=== PATIENT | female | born 1950 | race Caucasian/White ===

== ENCOUNTER 2016-12-15 22:09 | Inpatient (IN) | payer OTHER, MEDICAID ==
[~2016-12-15] VITALS: Ht 147.3 cm; Wt 83.9 kg
[2016-12-15] MEDS: NACL 0.9% 1,000 ML IV SCH (02:50)
[~2016-12-15 22:09] MED LIST: ALBU0.0912 IH; AZIT1PDR6 PO; BUDE1AER IH; FERR325E14 PO; FLUO-387 PO; LISI30TA6 PO; METF1000 PO; METH4TAB3 PO; MONT10TA35 PO; OMEP40EC1 PO; ORE25 PO; PRON INH; SIMV20TA1 PO
[2016-12-15 22:29] VITALS: BP 143/68
--- NOTE | 2016-12-15 22:47 | NUR ---
Pt ambulated to bed 2.
[2016-12-15] MEDS ORDERED: NACL 0.9% 2,000 ML IV ONE (22:55)
--- NOTE | 2016-12-15 23:07 | NUR ---
Dr. Silva evaluating patient at bedside.
[2016-12-15 23:10] LABS: BASOPHILS # (AUTO) 0.1 K/uL (0.00-0.22); BASOPHILS % (AUTO) 0.6 % (0.0-2.0); EOSINOPHILS # (AUTO) 0.1 K/uL (0-0.4); EOSINOPHILS % (AUTO) 0.8 % (0.0-4.0); HEMATOCRIT 32.2 % (36-48); HEMOGLOBIN 10.3 g/dL (12.0-16.0); LYMPHOCYTES # (AUTO) 1.7 K/uL (2.5-16.5); LYMPHOCYTES % (AUTO) 17.3 % (20.5-51.1); MEAN CORPUSCULAR HEMOGLOBIN 24 pg (27-31); MEAN CORPUSCULAR HGB CONC 32 g/dL (33-37); MEAN CORPUSCULAR VOLUME 74 fL (80-94); MONOCYTES # (AUTO) 0.7 K/uL (0.8-1.0); MONOCYTES % (AUTO) 7.6 % (1.7-9.3); NEUTROPHILS % (AUTO) 73.7 % (42.2-75.2); PLATELET COUNT (AUTO) 321 K/uL (140-450); RED BLOOD CELL COUNT(AUTO) 4.36 MIL/uL (4.20-5.40); RED CELL DISTRIBUTION WIDTH 16.4 % (11.6-13.7); WHITE BLOOD COUNT (AUTO) 9.6 K/uL (4.8-10.8)
[2016-12-15 23:26] LABS: ALBUMIN 2.9 g/dL (3.4-5.0); ANION GAP 12.4 (8-16); CREATININE 1.7 mg/dL (0.6-1.3); POTASSIUM 5.4 mmol/L (3.5-5.1); TOTAL BILIRUBIN 0.1 mg/dL (0.0-1.0)
--- NOTE | 2016-12-15 23:40 | NUR ---
66/F PRESENTS TO ER C/O HIGH BLOOD SUGAR AND DIZZINESS. PT IS AA&OX4. ACTING APPROPRIATE FOR AGE. PT DENIES PAIN, SOB, CP, FEVER, N/V/D. BL LUNG SOUNDS CLEAR, ABDOMEN IS ROUND SOFT AND NON TENDER. DAUGHTER AT BEDSIDE TALKING WITH PT, ER MD NOTIFIED OF PT STATUS, COMFORT NEEDS MET AT THIS TIME.
[2016-12-15] MEDS ORDERED: ACETAMINOPHEN 325 MG TAB PO PRN (23:55)
[2016-12-15] MEDS ORDERED: ONDANSETRON 4 MG/2 ML VIAL IVP PRN (23:55)
[2016-12-15] MEDS ORDERED: HYDROcodone/APAP 7.5/325 MG 1 TAB PO PRN (23:55)
[2016-12-16] MEDS ORDERED: SODIUM POLYSTYRENE 15 GM/60 ML UDBTL PO ONE
--- NOTE | 2016-12-16 00:21 | NUR ---
Dr. Jimenez evaluating patient at bedside.
[2016-12-16] MEDS ORDERED: LOSA100T25 PO (00:39)
[2016-12-16] MEDS ORDERED: GABA300C PO (00:39)
[2016-12-16] MEDS ORDERED: PRAV20TA2 PO (00:39)
[2016-12-16] MEDS ORDERED: FURO-572 PO (00:39)
[2016-12-16] MEDS ORDERED: METO25TA PO (00:39)
[2016-12-16] MEDS ORDERED: LANTUS SUBQ ×2 (00:46)
[2016-12-16 01:12] LABS: CHOL/HDL RATIO 4.8 (1-4.5); FREE T4 (FREE THYROXINE) 1.18 ng/dL (0.76-1.46); MAGNESIUM 2.2 mg/dL (1.8-2.4); PHOSPHORUS 4.3 mg/dL (2.5-4.9); THYROID STIMULATING HORMONE 1.06 uIU/mL (0.34-3.74)
--- NOTE | 2016-12-16 01:15 | NUR ---
Patient will be admitted to care of [facility]. Admited to TELE. Will go to room 106-B. Belongings list completed. Report to MARINA SANCHEZ .
[2016-12-16 01:21] VITALS: BP 130/64
--- NOTE | 2016-12-16 01:21 | NUR ---
PATIENT ADMITTED TO THE UNIT FROM THE ER. PATIENT ACCOMPANIED BY DAUGHTER. PATIENT IS AMBULATORY AND AOX4. NO SIGNS AND SYMPTOMS OF DISTRESS NOTED. NO COMPLAINTS AT THIS TIME. PATIENT IS LATVIAN SPEAKING. DAUGHTER WAS ABLE TO TRANSLATE TO PATIENT, AND GAVE ACCURATE MEDICAL HISTORY. PATIENT IS ON ROOM AIR. IV SITE NOTED ON LEFT AC, SITE IS ASYMPTOMATIC, INTACT AND PATENT. IVF INFUSING WELL. BED IN LOWEST POSITION, SIDE RAILS UP AND CALL LIGHT WITHIN REACH. WILL CONTINUE TO MONITOR.
[2016-12-16 01:27] LABS: APPEARANCE,URINE CLEAR (CLEAR); BILIRUBIN,URINE NEGATIVE (NEGATIVE); BLOOD, URINE NEGATIVE (NEGATIVE); COLOR,URINE YELLOW (YELLOW); LEUKOCYTE ESTERASE ,URINE NEGATIVE (NEGATIVE); NITRITE, URINE NEGATIVE (NEGATIVE); PH,URINE 5.5 (5.0-9.0); UGLUCOSE 3+ (NEGATIVE)
[2016-12-16] MEDS: INSULIN DETEMIR 100 UNITS/ML 10 ML VIAL SUBQ SCH ×2 (01:34→20:51)
[2016-12-16 01:46] LABS: RBC,URINE 0-5 (RARE) /HPF (0-5); WBC,URINE 0-5 (RARE) /HPF (0-5); YEAST,URINE Rare /HPF (None Seen)
[2016-12-16] MEDS ORDERED: ALBUTEROL SULFATE/IPRATROPIU 3 ML SOL IH PRN (01:55)
[2016-12-16] MEDS ORDERED: DEXTROSE 50% 50 ML SYR IVP PRN (02:15)
--- NOTE | 2016-12-16 02:30 | NUR ---
PATIENT NEEDED TO GO TO THE RESTROOM, STANDBY ASSISTANCE DONE. PATIENT'S GAIT IS STABLE. NO SOB OR SIGNS OF DISTRESS NOTED. PATIENT VOIDED.
[2016-12-16 04:00] VITALS: BP 135/76
[2016-12-16] MEDS: INSULIN LISPRO SLIDING SCALE 100 UNITS/ML VIAL SUBQ PRN ×4 (06:22→20:50)
[2016-12-16] MEDS: BLOOD GLUCOSE MONITORING 1 DEV DEV FS SCH ×4 (07:03→20:47)
[2016-12-16] MEDS: ALBUTEROL SULFATE/IPRATROPIU 3 ML SOL IH SCH ×3 (07:06→19:26)
--- NOTE | 2016-12-16 07:09 | NUR ---
PATIENT REPORT GIVEN TO MORNING NURSE. PATIENT IS IN STABLE CONDITION
[2016-12-16 07:17] LABS: ANION GAP 11.2 (8-16); CARBON DIOXIDE 26.8 mmol/L (21-32); CREATININE 1.1 mg/dL (0.6-1.3)
--- NOTE | 2016-12-16 07:29 | NUR ---
RECEIVED PT IN BED. ASLEEP. AROUSABLE TO VOICE. ALERT ORIENTEDX4. NO SOB NOTED. RESPIRAOTY THERAPIST AT BEDSIDE, PT RECEIVING BREATHING TREATMENT. DENIES ANY PAIN OR DISCOMFORT AT THIS TIME. PT AMBULATORY TO THE BATHROOM. SAFETY PRECAUTION IN PLACE. CALL LIGHT WITHIN REACH.
[2016-12-16 07:59] VITALS: BP 144/61
[2016-12-16] MEDS: DOCUSATE SODIUM 100 MG GELCAP PO SCH ×2 (08:57→20:54)
[2016-12-16] MEDS: FLUoxetine 20 MG CAP PO SCH (08:57)
[2016-12-16] MEDS: metFORMIN 500 MG TAB PO SCH ×2 (08:57→20:52)
[2016-12-16] MEDS: GABAPENTIN 300 MG CAP PO SCH (08:57)
[2016-12-16] MEDS: LISINOPRIL 10 MG TAB PO SCH (08:57)
[2016-12-16] MEDS: NICOTINE TRANSD SYS 7 MG/24 HR PATCH TD SCH (08:58)
[2016-12-16] MEDS: FUROSEMIDE 20 MG TAB PO SCH (08:58)
[2016-12-16] MEDS: METOPROLOL SUCCINATE 50 MG TABER PO SCH (08:58)
[2016-12-16] MEDS ORDERED: HYDROCHLOROTHIAZIDE 25 MG TAB PO SCH (09:00)
--- NOTE | 2016-12-16 09:43 | NUR ---
PATIENT HAS BEEN SCREENED AND CATEGORIZED MODERATE RISK. PATIENT WILL BE SEEN WITHIN 3-5 DAYS OF ADMISSION. 12/17/16 TO 12/20/[address]
--- NOTE | 2016-12-16 11:29 | NUR ---
PT HAVING PROCEDURE DONE AT THIS TIME WILL ADMINISTER BREATHING TX AT A LATER TIME.
[2016-12-16] MEDS: FERRIC GLUCONATE 125 MG in NACL 0.9% 100 ML IV SCH (11:41)
[2016-12-16 11:50] VITALS: BP 125/54
[2016-12-16] MEDS: NACL 0.9% 1,000 ML IV SCH ×2 (13:14→22:02)
--- NOTE | 2016-12-16 14:59 | NUR ---
DAUGHTER OF PT AT BEDSIDE. PT REQUESTED TO TAKE A SHOWER. PROVIDED WITH SHOWER NEEDS. PT ABLE TO WALK STEADILY TO THE SHOWER ROOM. WITH STAND BY ASSIST. NO SOB NOTED. DENIES ANY PAIN OR DISCOMFORT AT THIS TIME.
[2016-12-16 15:59] VITALS: BP 110/50
--- NOTE | 2016-12-16 16:45 | NUR ---
PT COMPLAINS OF HAVING SOME DIFFICULTY OF BREATHING AND REQUESTS TO HAVE BREATHING TREATMENT. NO DISTRESS NOTED. O2 SATING AT 97% ON ROOM AIR. SOME VISITORS AT BEDSIDE. PT TALKING TO VISITORS. NO SIGNS AND SYMPTOMS OF ACUTE PAIN OR DISCOMFORT NOTED. CALLED RESPIRATORY THERAPIST TO FURTHER ASSESS PT.
--- NOTE | 2016-12-16 18:40 | NUR ---
PT KEPT CLEAN, DRY AND COMFORTABLE, NEEDS ATTENDED. WILL ENDORSE TO NEXT SHIFT, PT ON STABLE CONDITION, FOR CONTINUITY OF CARE. NO SOB NOTED, DENIES ANY PAIN OR DISCOMFORT AT THIS TIME.
--- NOTE | 2016-12-16 19:23 | NUR ---
RECEIVED REPORT FROM DAY SHIFT NURSE. AAOX4. PT LYING COMFORTABLY IN BED. NO DISTRESS NOTED. IV TO LEFT AC #20G, NS AT 80ML/HR. CALL LIGHT WITHIN REACH. WILL CONTINUE TO MONITOR.
[2016-12-16 20:00] VITALS: BP 122/50
[2016-12-16] MEDS ORDERED: MONTELUKAST SODIUM 10 MG TAB PO SCH (21:00)
[2016-12-16] MEDS ORDERED: SIMVASTATIN 20 MG TAB PO SCH (21:00)
--- NOTE | 2016-12-16 22:25 | NUR ---
PT C/O PAIN ON THE IV SITE. D/C IV CANNULA. TIP INTACT.
--- NOTE | 2016-12-16 22:35 | NUR ---
INSERTED IV LINE TO RIGHT HAND #22G. GOOD FLUSH AND BLOOD RETURN. PT TOLERATED PROCEDURE WELL.
[2016-12-17] VITALS: BP 127/52
--- NOTE | 2016-12-17 00:20 | NUR ---
PT SLEEPING. NO SIGNS OF DISTRESS. CALL LIGHT WITHIN REACH.
--- NOTE | 2016-12-17 02:43 | NUR ---
PT SLEEPING. NO SIGNS OF PAIN OR DISCOMFORT NOTED. IVF INFUSING WELL. CALL LIGHT WITHIN REACH.
[2016-12-17 04:00] VITALS: BP 115/52
--- NOTE | 2016-12-17 04:50 | NUR ---
PT SLEEPING. NO SIGNS OF DISTRESS.
[2016-12-17] MEDS: BLOOD GLUCOSE MONITORING 1 DEV DEV FS SCH ×3 (06:47→16:26)
[2016-12-17] MEDS: ALBUTEROL SULFATE/IPRATROPIU 3 ML SOL IH SCH (06:53)
[2016-12-17 07:00] LABS: BASOPHILS % (AUTO) 0.3 % (0.0-2.0); EOSINOPHILS # (AUTO) 0.1 K/uL (0-0.4); EOSINOPHILS % (AUTO) 1.2 % (0.0-4.0); HEMATOCRIT 27.3 % (36-48); HEMOGLOBIN 8.8 g/dL (12.0-16.0); LYMPHOCYTES # (AUTO) 1.5 K/uL (2.5-16.5); LYMPHOCYTES % (AUTO) 19.1 % (20.5-51.1); MEAN CORPUSCULAR HEMOGLOBIN 24 pg (27-31); MEAN CORPUSCULAR HGB CONC 32 g/dL (33-37); MEAN CORPUSCULAR VOLUME 74 fL (80-94); MONOCYTES # (AUTO) 0.8 K/uL (0.8-1.0); MONOCYTES % (AUTO) 9.9 % (1.7-9.3); NEUTROPHILS # (AUTO) 5.4 K/uL (1.8-7.7); NEUTROPHILS % (AUTO) 69.5 % (42.2-75.2); PLATELET COUNT (AUTO) 257 K/uL (140-450); RED BLOOD CELL COUNT(AUTO) 3.69 MIL/uL (4.20-5.40); RED CELL DISTRIBUTION WIDTH 16.3 % (11.6-13.7); WHITE BLOOD COUNT (AUTO) 7.9 K/uL (4.8-10.8)
--- NOTE | 2016-12-17 07:18 | NUR ---
ENDORSED TO DAY SHIFT NURSE. PT IN STABLE CONDITION.
--- NOTE | 2016-12-17 07:20 | NUR ---
RECEIVED PT SITTING ON BED. AWAKE, ALERT ORIENTEDX4. NO SOB NOTED. DENIES ANY PAIN OR DISCOMFORT AT THIS TIME. PT AMBULATORY. SAFETY PRECAUTION IN PLACE. CALL LIGHT WITHIN REACH.
[2016-12-17 07:52] VITALS: BP 152/66
[2016-12-17 07:54] LABS: ANION GAP 11.1 (8-16); CARBON DIOXIDE 24.1 mmol/L (21-32); POTASSIUM 4.2 mmol/L (3.5-5.1)
[2016-12-17 08:17] LABS: MAGNESIUM 1.8 mg/dL (1.8-2.4); PHOSPHORUS 3.9 mg/dL (2.5-4.9)
[2016-12-17] MEDS: FUROSEMIDE 20 MG TAB PO SCH (08:56)
[2016-12-17] MEDS: metFORMIN 500 MG TAB PO SCH (08:56)
[2016-12-17] MEDS: METOPROLOL SUCCINATE 50 MG TABER PO SCH (08:56)
[2016-12-17] MEDS: FLUoxetine 20 MG CAP PO SCH (08:57)
[2016-12-17] MEDS: LISINOPRIL 10 MG TAB PO SCH (08:57)
[2016-12-17] MEDS: GABAPENTIN 300 MG CAP PO SCH (08:57)
[2016-12-17] MEDS: DOCUSATE SODIUM 100 MG GELCAP PO SCH (08:57)
[2016-12-17] MEDS: NICOTINE TRANSD SYS 7 MG/24 HR PATCH TD SCH (08:58)
[2016-12-17 09:53] LABS: TRANSFERRIN 277 mg/dL (200-370)
[2016-12-17] MEDS: NACL 0.9% 1,000 ML IV SCH (09:59)
--- NOTE | 2016-12-17 11:00 | NUR ---
PT IN BED. WITH FAMILY VISITOR AT BEDSIDE. NO SOB NOTED. DENIES ANY PAIN OR DISCOMFORT AT THIS TIME.
[2016-12-17] MEDS: FERRIC GLUCONATE 125 MG in NACL 0.9% 100 ML IV SCH (11:36)
[2016-12-17] MEDS: INSULIN LISPRO SLIDING SCALE 100 UNITS/ML VIAL SUBQ PRN (11:41)
[2016-12-17 11:48] VITALS: BP 135/53
[2016-12-17] MEDS ORDERED: INFLUENZA VIRUS VACCINE QUAD 0.5 ML SYR IMVAC SCH (14:50)
[2016-12-17] MEDS ORDERED: NICO1PAT64 TD (15:31)
[2016-12-17] MEDS ORDERED: ASCO500T93 PO (15:31)
[2016-12-17] MEDS ORDERED: GLU500 PO (15:31)
[2016-12-17] MEDS ORDERED: FURO20TA8 PO (15:31)
[2016-12-17] MEDS ORDERED: GABA-638 PO (15:31)
[2016-12-17] MEDS ORDERED: FERR-193 PO (15:31)
[2016-12-17 15:51] VITALS: BP 142/61
[2016-12-17] MEDS ORDERED: BLOO-571 MC (16:05)
[2016-12-17] MEDS ORDERED: GLUCOMETER (16:08)
[2016-12-17] MEDS ORDERED: LANCETS (16:09)
[2016-12-17] MEDS ORDERED: FLUO10CA21 PO (16:10)
--- NOTE | 2016-12-17 16:51 | NUR ---
X-RAY TECH RO CAME TO CHARGE ACCOUNT CLERK PT FOR XRAY OF CERVICAL SPINE. PT AWARE. Addendum: 12/17/16 at 1652 by Laura Hernández RN PLEASE DISREGARD ABOVE DOCUMENTATION, WRONG PATIENT.
--- NOTE | 2016-12-17 17:20 | NUR ---
OFFERED PT TO USE General Specific [employer]. PT PREFERRED DAUGHTER PADMINI TO DO TRANSLATION. DISCHARGE TEACHINGS AND HEALTH INSTRUCTIONS GIVEN AND EXPLAINED TO PT. PT AND DAUGHTER VERBALIZED UNDERSTANDING. PT SIGNED DISCHARGED PAPERS. REMINDED TO FOLLOW UP WITH PCP TOMORROW 12/18/16. FLU VACCINE GIVEN IM ON RIGHT DELTOID. PRESCRIPTIONS GIVEN. TELE MONITOR REMOVED. IV CANNULA REMOVED AND INTACT. NAME ARMBAND REMOVED. NO SOB NOTED, DENIES ANY PAIN OR DISCOMFORT AT THIS TIME. PT WHEELED OUT GOING TO THE HOSPITAL PARKING LOT TO THEIR PRIVATE OWNED VEHICLE. PT DISCHARGED ON STABLE CONDITION.
--- NOTE | 2016-12-18 15:08 | NUR ---
CM NOTE RETRO REVIEW FAXED TO [facility] / FAX# [phone], ATTN: ANTHONY #[phone]
[2016-12-19 13:10] LABS: FERRITIN 10 ng/mL (15-150)
== END 2016-12-17 17:30 | disposition home or self-care (01) | DRG 637 ==
LOC: MED 22:09 → MTU 23:52
PROVIDERS: ADMIT Student in an Organized Health Care Education/Training Program; ATTEND Student in an Organized Health Care Education/Training Program
PROC: 3E0234Z Introduction of Serum, Toxoid and Vaccine into Muscle, Percutaneous Approach (ICD-10-PCS; principal; 2016-12-17)
DX: E11.00 Type 2 diabetes mellitus with hyperosmolarity without nonketotic hyperglycemic-hyperosmolar coma (NKHHC) (principal); N17.0 Acute kidney failure with tubular necrosis; D68.59 Other primary thrombophilia; E87.5 Hyperkalemia; G90.9 Disorder of the autonomic nervous system, unspecified; E11.65 Type 2 diabetes mellitus with hyperglycemia; J45.909 Unspecified asthma, uncomplicated; F32.9 Major depressive disorder, single episode, unspecified; I10 Essential (primary) hypertension; E66.9 Obesity, unspecified; Z68.38 Body mass index [BMI] 38.0-38.9, adult; K21.9 Gastro-esophageal reflux disease without esophagitis; E78.2 Mixed hyperlipidemia; F17.210 Nicotine dependence, cigarettes, uncomplicated; D50.9 Iron deficiency anemia, unspecified; Z71.6 Tobacco abuse counseling; Z23 Encounter for immunization
CPT/HCPCS: 36415; 70450; 71010; 80048; 80053; 81001; 82009; 82150; 82728; 82948; 83036; 83540; 83690; 83735; 83880; 84100; 84439; 84443; 84484; 85025; 85045; 85610; 85730; 87081; 87086; 90658; 93005; 93880; 93925; 93970; 94640; 96360; 96361; 99285; J1815; J2916; J7030; J7620; Q0092

== ENCOUNTER 2017-12-09 21:33 | Emergency (ER) | payer MEDICAID, OTHER ==
[~2017-12-09] VITALS: Ht 152.4 cm; Wt 84.4 kg
[~2017-12-09 21:33] MED LIST changes: +ASCO500T93 PO; -AZIT1PDR6 PO; +BLOO-571 MC; -BUDE1AER IH; +FERR-20 PO; -FERR325E14 PO; -FLUO-387 PO; +FLUO10CA21 PO; +FURO20TA8 PO; +GABA-638 PO; +GLU500 PO; +GLUCOMETER; +LANCETS; +LANTUS SUBQ; -LISI30TA6 PO; +LOSA100T15 PO; -METF1000 PO; -METH4TAB3 PO; +METO25TA PO; +NICO1PAT64 TD; -ORE25 PO; +PRAV20TA2 PO; -SIMV20TA1 PO
[2017-12-09 21:37] VITALS: BP 184/75
--- NOTE | 2017-12-09 21:42 | NUR ---
PT TRIAGED VSS, NAD. EDMD AWARE.
--- NOTE | 2017-12-09 22:24 | NUR ---
PT AMBULATED TO BED 10
--- NOTE | 2017-12-09 22:24 | NUR ---
PT PRESENTS TO ED WITH SOB, NAVARRO, ABD PAIN, AND HIGH BLOOD GLUCOSE. PT STATES SOB, LUNGS CLEAR TO AUSCLETATION BILAT AND THROUGHOUT WITH O2SAT OF 99% AT RA; NAVARRO PAIN 5/10; ABD PAIN EPIGASTRIC WITH SHARP PAIN ON POSITION CHANGE AND PALPATION 8/10; BLOOD GLUCOSE 290 UPON ER ADMISSION. VSS. POSITIONED IN BED FOR COMFORT WITH HOB ELEVATED AND SIDE RAIL UP. DAUGHTER AT BEDSIDE. ER MD AWARE. CONTINUE TO MONITOR.
[2017-12-09] MEDS ORDERED: INSULIN REGULAR, HUMAN 100 UNIT/ML VIAL SUBQ ONE (22:25)
[2017-12-09 23:48] LABS: BASOPHILS % (AUTO) 0.5 % (0.0-2.0); EOSINOPHILS # (AUTO) 0.1 K/uL (0-0.4); EOSINOPHILS % (AUTO) 2.2 % (0.0-4.0); HEMATOCRIT 35.2 % (36-48); HEMOGLOBIN 11.5 g/dL (12.0-16.0); LYMPHOCYTES # (AUTO) 2.1 K/uL (2.5-16.5); LYMPHOCYTES % (AUTO) 30.3 % (20.5-51.1); MEAN CORPUSCULAR HEMOGLOBIN 26 pg (27-31); MEAN CORPUSCULAR HGB CONC 33 g/dL (33-37); MEAN CORPUSCULAR VOLUME 80.7 fL (80-94); MONOCYTES # (AUTO) 0.6 K/uL (0.8-1.0); PLATELET COUNT (AUTO) 274 K/uL (140-450); RED BLOOD CELL COUNT(AUTO) 4.36 MIL/uL (4.20-5.40); RED CELL DISTRIBUTION WIDTH 15.3 % (11.6-13.7); WHITE BLOOD COUNT (AUTO) 6.8 K/uL (4.8-10.8)
[2017-12-10 00:09] LABS: ANION GAP 10.7 (8-16); CARBON DIOXIDE 28.1 mmol/L (21-32); CREATININE 1.3 mg/dL (0.6-1.3); POTASSIUM 4.8 mmol/L (3.5-5.1)
[2017-12-10 00:16] LABS: ALBUMIN 2.8 g/dL (3.4-5.0); TOTAL BILIRUBIN 0.2 mg/dL (0.0-1.0)
[2017-12-10 00:26] LABS: APPEARANCE,URINE CLEAR (CLEAR); COLOR,URINE YELLOW (YELLOW)
[2017-12-10 00:27] LABS: BILIRUBIN,URINE NEGATIVE (NEGATIVE); BLOOD, URINE NEGATIVE (NEGATIVE); UGLUCOSE >=1000 (NEGATIVE)
[2017-12-10 00:28] LABS: LEUKOCYTE ESTERASE ,URINE NEGATIVE (NEGATIVE); NITRITE, URINE NEGATIVE (NEGATIVE)
[2017-12-10 00:29] LABS: RBC,URINE 0-5 (RARE) /HPF (0-5); WBC,URINE 0-5 (RARE) /HPF (0-5)
[2017-12-10 00:30] LABS: URINE AMORPHOUS URATE 1+ /HPF (None Seen)
[2017-12-10] MEDS ORDERED: PANTOPRAZOLE 40 MG TABEC PO ONE (00:40)
[2017-12-10] MEDS ORDERED: DICYCLOMINE HCL LIQUID 20 MG, ALUMINUM HYD/MAG/SIMETHICONE 30 ML, LIDOCAINE VISCOUS 2% ... PO ONE ×3 (00:40)
[2017-12-10] MEDS ORDERED: METOCLOPRAMIDE 10 MG TAB PO ONE (00:40)
[2017-12-10 02:34] VITALS: BP 143/86
--- NOTE | 2017-12-10 02:34 | NUR ---
Patient discharged with v/s stable. Written and verbal after care instructions given and explained. Patient alert, oriented and verbalized understanding of instructions. Ambulatory with steady gait. All questions addressed prior to discharge. ID band removed. Patient advised to follow up with PMD. Rx of Reglan given. Patient educated on indication of medication including possible reaction and side effects. Opportunity to ask questions provided and answered.
== END 2017-12-10 02:38 | disposition home or self-care (01) ==
LOC: MED 21:33
DX: E11.65 Type 2 diabetes mellitus with hyperglycemia (principal); J45.909 Unspecified asthma, uncomplicated; K21.9 Gastro-esophageal reflux disease without esophagitis; I10 Essential (primary) hypertension; Z79.4 Long term (current) use of insulin; Z79.899 Other long term (current) drug therapy
CPT/HCPCS: 36415; 80053; 81001; 81002; 83690; 85025; 87086; 96372; 99284; J1815; J8597

== ENCOUNTER 2020-02-14 02:05 | Emergency (ER) | payer OTHER, MEDICAID ==
[~2020-02-14] VITALS: Ht 152.4 cm; Wt 89.8 kg
[~2020-02-14 02:05] MED LIST changes: -LOSA100T15 PO; +LOSA100T51 PO; -OMEP40EC1 PO; +OMEP40EC24 PO
[2020-02-14] MEDS ORDERED: cefTRIAXone 1,000 MG in DEXT 5% MINI-BAG PLUS 50 ML IV ONE (02:15)
[2020-02-14 02:30] VITALS: BP 132/67
--- NOTE | 2020-02-14 02:32 | NUR ---
ERMD EVALUATED PATIENT IN TRIAGE. CT ORDERED.
--- NOTE | 2020-02-14 02:40 | NUR ---
PATIENT TAKEN TO BED 12 VIA W/C.
--- NOTE | 2020-02-14 03:29 | NUR ---
PT TAKEN TO CT AND XRAY VIA WHEELCHAIR
[2020-02-14] MEDS ORDERED: MORPHINE SULFATE 4 MG/ML SYR IM ONE (03:30)
[2020-02-14 03:32] LABS: BASOPHILS % (AUTO) 0.5 % (0.0-2.0); EOSINOPHILS # (AUTO) 0.1 K/uL (0-0.4); EOSINOPHILS % (AUTO) 1.3 % (0.0-4.0); HEMATOCRIT 26.1 % (36-48); HEMOGLOBIN 8.6 g/dL (12.0-16.0); LYMPHOCYTES # (AUTO) 1.1 K/uL (2.5-16.5); LYMPHOCYTES % (AUTO) 12.2 % (20.5-51.1); MEAN CORPUSCULAR HEMOGLOBIN 28 pg (27-31); MEAN CORPUSCULAR HGB CONC 33 g/dL (33-37); MEAN CORPUSCULAR VOLUME 85.7 fL (80-94); MONOCYTES # (AUTO) 0.8 K/uL (0.8-1.0); MONOCYTES % (AUTO) 9.1 % (1.7-9.3); NEUTROPHILS # (AUTO) 6.9 K/uL (1.8-7.7); NEUTROPHILS % (AUTO) 76.9 % (42.2-75.2); PLATELET COUNT (AUTO) 349 K/uL (140-450); RED BLOOD CELL COUNT(AUTO) 3.05 MIL/uL (4.20-5.40); RED CELL DISTRIBUTION WIDTH 16.3 % (11.6-13.7)
--- NOTE | 2020-02-14 03:48 | NUR ---
PT WAS SEEN AT [facility] ON SUNDAY FOR ALOC, WAS TREATED IN ER AND SENT HOME. DAUGHTERS' STATE THAT PT HAS REMAINED ALTERED AND FELL TODAY AT NOON AND STRUCK HER HEAD ON THE GROUND. DENIES LOC. PT CURRENTLY STATES SHE IS HAVING CHEST PAIN WELL. PT UNABLE TO AMBULATE DUE TO NOT HAVING HER WALKER WITH HER. C/O WEAKNESS WELL. NKA HX - DM, HTN, GERD, DEMENTIA
[2020-02-14 04:01] LABS: ALBUMIN 1.1 g/dL (3.4-5.0); ASPARTATE AMINOTRANSFERASE 31 U/L (15-37); CARBON DIOXIDE 25.6 mmol/L (21-32); CHLORIDE 106 mmol/L (98-107); CREATININE 3.5 mg/dL (0.6-1.3); GLUCOSE 117 mg/dL (74-106); POTASSIUM 4.6 mmol/L (3.5-5.1); SODIUM SERUM 138 mmol/L (136-145); TOTAL BILIRUBIN 0.3 mg/dL (0.0-1.0); UREA NITROGEN, BLOOD 39 mg/dL (7-18)
--- NOTE | 2020-02-14 04:10 | NUR ---
XRAY AT BEDSIDE FINISHING UP XRAY'S OF KNEES AND ANKLES.
[2020-02-14] MEDS ORDERED: DONE10TA10 PO (04:45)
--- NOTE | 2020-02-14 05:53 | NUR ---
PT TO BE DISCHARGED HOME. SPOKE TO PT'S DAUGHTER OLGA, SHE WILL CONTACT HER SISTER YAMILET WHO LIVES IN [place] TO COME PICK MOM UP.
--- NOTE | 2020-02-14 06:27 | NUR ---
PT'S DAUGHTER SRAR HERE TO PRE BILLING CLINICIAN PT. Patient discharged with v/s stable. Written and verbal after care instructions given and explained. Patient alert, oriented and verbalized understanding of instructions. Wheel Chair Assisted with to home. All questions addressed prior to discharge. ID band removed. Patient advised to follow up with PMD. Rx of NORCO given. Patient educated on indication of medication including possible reaction and side effects. Opportunity to ask questions provided and answered.
[2020-02-14 06:28] VITALS: BP 115/56
== END 2020-02-14 06:28 | disposition home or self-care (01) ==
LOC: MED 02:05
DX: R51.9 Headache, unspecified (principal); M54.2 Cervicalgia; M25.512 Pain in left shoulder; M25.561 Pain in right knee; M25.571 Pain in right ankle and joints of right foot; N19 Unspecified kidney failure; J45.909 Unspecified asthma, uncomplicated; E11.9 Type 2 diabetes mellitus without complications; K21.9 Gastro-esophageal reflux disease without esophagitis; I10 Essential (primary) hypertension; Z79.4 Long term (current) use of insulin; Z79.899 Other long term (current) drug therapy
CPT/HCPCS: 36415; 70450; 71045; 72125; 73030; 73562; 73610; 80053; 83880; 84484; 85025; 96372; 99285; J2270

== ENCOUNTER 2020-05-14 22:14 | Emergency (ER) | payer OTHER, MEDICAID ==
[~2020-05-14] VITALS: Ht 152.4 cm; Wt 68.0 kg
[~2020-05-14 22:14] MED LIST changes: +DONE10TA10 PO
[2020-05-14 22:20] VITALS: BP 190/79
--- NOTE | 2020-05-14 22:20 | NUR ---
TO BED VIA WHEEL CHAIR
--- NOTE | 2020-05-14 22:45 | NUR ---
BIB FAMILY C/O FALL X 1HR AGO. PT WAS WASHING HER HANDS IN THE [place] ENDED UP FALLING BACK AND HITTING HER HEAD. +HEMATOMA NOTED ON THE RT OCCIPITAL/PARIETAL REGION. VSS. A&OX2. +DIZZINESS. PT HAD 2 EPISODES OF VOMITTING REHABILITATION COUNSELLOR. PT C/O OF NAVARRO, 8/10 PAIN. 2MM PERRLA. FOLLOWS COMMANDS. NEG FAST. EQUAL BILATERAL ARM STRENGTH. NO BLEEDING NOTED. NKDA. PMH: DM, HTN.
[2020-05-14] MEDS ORDERED: ACETAMINOPHEN EXTRA STRENGTH 500 MG TAB PO ONE (23:15)
--- NOTE | 2020-05-14 23:21 | NUR ---
PT TAKEN TO CT VIA RSINDY.
--- NOTE | 2020-05-14 23:40 | NUR ---
PT RETURNED BACK FROM CT VIA [facility].
[2020-05-15] MEDS ORDERED: HYDROcodone/APAP 5/325 MG 1 TAB TAB PO SCH (00:45)
[2020-05-15] MEDS ORDERED: HYDROcodone/APAP 5/325 MG 1 TAB TAB PO ONE (00:55)
--- NOTE | 2020-05-15 01:00 | NUR ---
PT AMBULATED WITH STEADY WITH STAND BY ASSIST.
[2020-05-15 01:11] VITALS: BP 104/51
--- NOTE | 2020-05-15 01:11 | NUR ---
Patient discharged with v/s stable. Written and verbal after care instructions given and explained. Patient verbalized understanding. Wheel Chair Assisted with to car. All questions addressed prior to discharge. Advised to follow up with PMD.
[2020-05-21] MEDS ORDERED: tyle (20:46)
[2020-05-21] MEDS ORDERED: ACET-9800 PO (20:46)
[2020-05-25] MEDS ORDERED: HYDR-4420 PO (14:50)
== END 2020-05-15 01:11 | disposition home or self-care (01) ==
LOC: MED 22:14
DX: S09.8XXA Other specified injuries of head, initial encounter (principal); M25.552 Pain in left hip; J45.909 Unspecified asthma, uncomplicated; E11.9 Type 2 diabetes mellitus without complications; K21.9 Gastro-esophageal reflux disease without esophagitis; I10 Essential (primary) hypertension; W18.39XA Other fall on same level, initial encounter; Y93.89 Activity, other specified; Y92.89 Other specified places as the place of occurrence of the external cause; Y99.8 Other external cause status
CPT/HCPCS: 70450; 99284